=== PATIENT | male | born 1960 | race Caucasian/White ===

== ENCOUNTER 2022-07-02 16:11 | Emergency (ER) | payer SELFPAY ==
[~2022-07-02] VITALS: Ht 172.7 cm; Wt 80.0 kg
[2022-07-02] MEDS ORDERED: ACETAMINOPHEN 325MG TABLET PO ONE (16:30)
[2022-07-02] MEDS ORDERED: IBUPROFEN 400MG TABLET PO ONE (16:30)
[2022-07-02] MEDS ORDERED: IBUP-2028 MT (18:47)
[2022-07-02 19:32] VITALS: BP 138/75
== END 2022-07-02 19:34 | disposition home or self-care (01) ==
LOC: ER 16:46
DX: R07.81 Pleurodynia (principal); I10 Essential (primary) hypertension
CPT/HCPCS: 71045; 99283